=== PATIENT | female | born 1975 | race Caucasian/White ===

== ENCOUNTER 2017-08-25 12:34 | Inpatient (IN) | payer MEDICAID ==
[~2017-08-25] VITALS: Ht 152.4 cm; Wt 70.8 kg
[2017-08-25] VITALS (8 sets, daily range): BP systolic 102–121; BP diastolic 55–74
--- NOTE | 2017-08-25 12:43 | NUR ---
PT AMBULATED TO BED 2.
--- NOTE | 2017-08-25 12:48 | NUR ---
42F BIB FAMILY C/O RLQ ABDOMINAL PAIN, THROBBING, RADIATES TO LLQ, 8/10 X 3 DAYS WITH NAUSEA; PT STATES NO VOMITING OR DIARRHEA AT THIS TIME; ABDOMEN SOFT, NON-TENDER, ACTIVE BOWEL SOUNDS X 4 QUADRANTS; PT AA&OX4, BL LUNG SOUNDS CLEAR, RR EVEN/UNLABORED, SKIN IS WARM/DRY/INTACT WITH EVEN AND STEADY GAIT; PT RESTING IN BED WITH HOB ELEVATED AND IN LOWEST POSITION; POSITIONED FOR COMFORT; ER MD MADE AWARE OF STATUS. WILL CONTINUE TO MONITOR.
--- NOTE | 2017-08-25 12:54 | NUR ---
ER MD DR. LUBIN EVALUATING PT AT BEDSIDE.
[2017-08-25] MEDS ORDERED: NACL 0.9% 1,000 ML IV ONE (12:57)
[2017-08-25] MEDS ORDERED: MORPHINE SULFATE 4 MG/ML SYR IVP ONE (13:00)
[2017-08-25] MEDS ORDERED: ONDANSETRON 4 MG/2 ML VIAL IVP ONE (13:00)
--- NOTE | 2017-08-25 13:12 | NUR ---
patient transported to ultrasound in a gurney at this time.
--- NOTE | 2017-08-25 13:18 | NUR ---
patient returned from ultrasound via [facility].
[2017-08-25 13:27] LABS: BASOPHILS # (AUTO) 0.2 K/uL (0.00-0.22); BASOPHILS % (AUTO) 1.8 % (0.0-2.0); EOSINOPHILS # (AUTO) 0.1 K/uL (0-0.4); EOSINOPHILS % (AUTO) 1.1 % (0.0-4.0); HEMATOCRIT 41.5 % (36-48); LYMPHOCYTES # (AUTO) 2.7 K/uL (2.5-16.5); LYMPHOCYTES % (AUTO) 23.8 % (20.5-51.1); MEAN CORPUSCULAR HEMOGLOBIN 30 pg (27-31); MEAN CORPUSCULAR HGB CONC 34 g/dL (33-37); MEAN CORPUSCULAR VOLUME 89 fL (80-94); MONOCYTES # (AUTO) 0.9 K/uL (0.8-1.0); NEUTROPHILS # (AUTO) 7.5 K/uL (1.8-7.7); NEUTROPHILS % (AUTO) 65.3 % (42.2-75.2); PLATELET COUNT (AUTO) 384 K/uL (140-450); RED BLOOD CELL COUNT(AUTO) 4.69 MIL/uL (4.20-5.40); RED CELL DISTRIBUTION WIDTH 12.4 % (11.6-13.7); WHITE BLOOD COUNT (AUTO) 11.4 K/uL (4.8-10.8)
[2017-08-25 13:39] LABS: CARBON DIOXIDE 26.6 mmol/L (21-32); CREATININE 0.7 mg/dL (0.6-1.3); POTASSIUM 3.6 mmol/L (3.5-5.1)
[2017-08-25 13:45] LABS: ALBUMIN 3.8 g/dL (3.4-5.0); TOTAL BILIRUBIN 0.3 mg/dL (0.0-1.0)
[2017-08-25 13:47] LABS: BILIRUBIN,URINE NEGATIVE (NEGATIVE); BLOOD, URINE NEGATIVE (NEGATIVE); COLOR,URINE YELLOW (YELLOW); LEUKOCYTE ESTERASE ,URINE NEGATIVE (NEGATIVE); NITRITE, URINE NEGATIVE (NEGATIVE); PH,URINE 6.5 (5.0-9.0); UGLUCOSE NEGATIVE (NEGATIVE)
[2017-08-25 13:48] LABS: APPEARANCE,URINE CLEAR (CLEAR)
[2017-08-25] MEDS: PIPERACILLIN/TAZOBACTAM 3.375 GM in DEXTROSE 5% 50 ML IV ONE ×2 (13:55→14:20)
[2017-08-25] MEDS ORDERED: metroNIDAZOLE 500 MG/NS PREMIX 100 ML IV ONE (13:55)
[2017-08-25] MEDS ORDERED: NACL 0.9% 1,000 ML IV SCH (14:06)
[2017-08-25] MEDS ORDERED: PIPERACILLIN/TAZOBACTAM 3.375 GM VIAL IV ONE (14:07)
[2017-08-25] MEDS ORDERED: ACETAMINOPHEN 325 MG TAB PO PRN (14:10)
[2017-08-25] MEDS ORDERED: DOCUSATE SODIUM 100 MG GELCAP PO PRN (14:10)
[2017-08-25] MEDS ORDERED: HYDROcodone/APAP 7.5/325 MG 1 TAB PO PRN (14:10)
--- NOTE | 2017-08-25 14:10 | NUR ---
PT APPEARS TO BE RESTING COMFORTABLY IN BED; RR EVEN/UNLABORED; POSITIONED FOR COMFORT; WILL CONTINUE TO MONITOR.
--- NOTE | 2017-08-25 14:36 | NUR ---
Patient will be admitted to care of DR. JASSO. Admited to MED-SURG. Will go to room 106B. Belongings list completed. Report to NORI CARRILLO; GERARDO NOTIFIED FLAGYL NOT GIVEN ZOSYN INFUSING EN ROUTE TO MED-SURG.
[2017-08-25 14:42] LABS: BARBITURATE, URINE NEG. ng/ml (NEG <=200); BENZODIAZEPINE, URINE NEG. ng/mL (NEG <=200); CANNABINOID, URINE NEG. ng/mL (NEG <=50); COCAINE, URINE NEG. ng/mL (NEG <=300); OPIATE, URINE NEG. ng/mL (NEG <=2000); PHENCYCLIDINE SCREEN,URINE NEG. ng/mL (NEG <=25)
--- NOTE | 2017-08-25 14:45 | NUR ---
PT ADMITTED TO [facility]. ARRIVED VIA GURNEY ACCOMPANIED BY FAMILY MEMBERS AND RN. PT AMBULATED TO BED WITH STEADY GAIT. BEDSIDE REPORT GIVEN BY ER NURSE DARSHANA. PT IS AAOX4. VS: TEMP 98.3 F, O2 SAT 100% ON RA, HR 90, BP 130/72, RR 20. PT NPO STATUS. APPLIED BROWN SOCKS ON. MRSA SWAB DONE. IV TO L AC 20G INFUSING REMAINDER OF ZOSYN IVPB. ORIENTED PT TO ROOM AND CALL LIGHT. BED IN LOW POSITION, WHEELS LOCKED, CALL LIGHT WITHIN REACH. WILL CONTINUE TO MONITOR.
[2017-08-25 14:51] LABS: PROTHROMBIN TIME 10.4 secs (10.8-13.4)
[2017-08-25 14:58] LABS: CHOL/HDL RATIO 3.7 (1-4.5); FREE T4 (FREE THYROXINE) 1.13 ng/dL (0.76-1.46); PHOSPHORUS 3.4 mg/dL (2.5-4.9); THYROID STIMULATING HORMONE 1.76 uIU/mL (0.34-3.74)
--- NOTE | 2017-08-25 15:51 | NUR ---
WENT TO ASSESS PT'S PAIN LEVEL. PT STATED HER PAIN IS 6/10 ON ABD BUT DOES NOT WANT ANY PAIN MEDICATION. STATED "IT'S OKAY." PT GOT UP TO USE RESTROOM. WALKED WITH STEADY GAIT. NO SIGNS OF DISTRESS. WILL CONTINUE TO MONITOR.
[2017-08-25] MEDS ORDERED: BUPIVACAINE-MPF 0.25% 30 ML VIAL INJ ONE (17:15)
--- NOTE | 2017-08-25 17:20 | NUR ---
OBTAINED CONSENT FOR LAP APPENDECTOMY. USED CARE AIDE MAGALI ID # [id number] TO INTERPRET IN [place]UVIAN. PT VERBALIZED UNDERSTANDING AND SIGNED CONSENT FORM. OR NURSE CAME TO OUTBOARD TECHNICIAN PT VIA BED. PT WENT OFF UNIT FOR SURGERY.
[2017-08-25] MEDS ORDERED: fentaNYL 0.05 MG/ML VIAL ONE (17:41)
[2017-08-25] MEDS ORDERED: MORPHINE SULFATE 4 MG/ML SYR ONE ×3 (17:42→19:18)
[2017-08-25] MEDS ORDERED: MIDAZOLAM 2 MG/2 ML VIAL ONE (17:42)
[2017-08-25] MEDS ORDERED: MIDAZOLAM 2 MG/2 ML VIAL IV SCH (18:25)
[2017-08-25] MEDS ORDERED: MORPHINE SULFATE 4 MG/ML SYR IVP PRN (18:25)
[2017-08-25] MEDS ORDERED: MORPHINE SULFATE 2 MG/ML SYR IVP PRN (18:25)
[2017-08-25] MEDS ORDERED: ROCURONIUM 50 MG/5 ML VIAL IV ONE (19:00)
[2017-08-25] MEDS ORDERED: KETOROLAC 60 MG/2 ML VIAL IM ONE (19:00)
[2017-08-25] MEDS ORDERED: GLYCOPYRROLATE 0.2 MG/ML VIAL ONE (19:00)
[2017-08-25] MEDS ORDERED: ONDANSETRON 4 MG/2 ML VIAL ONE (19:00)
[2017-08-25] MEDS ORDERED: NEOSTIGMINE 1:1000 10 MG/10 ML VIAL ONE (19:00)
[2017-08-25] MEDS ORDERED: DESFLURANE 240 ML BTL INH ONE (19:00)
[2017-08-25] MEDS ORDERED: PROPOFOL 200 MG/20 ML VIAL IV ONE (19:00)
[2017-08-25] MEDS ORDERED: SUCCINYLCHOLINE CHLORIDE 200 MG/10 ML VIAL IVP ONE (19:00)
[2017-08-25] MEDS ORDERED: DEXAMETHASONE 10 MG/ML VIAL ONE (19:00)
--- NOTE | 2017-08-25 19:05 | NUR ---
GAVE REPORT TO LIFE SCIENCE RESEARCH ASSISTANT NURSE CHRISSY FOR CONTINUITY OF CARE. PT STILL OFF UNIT FOR PROCEDURE.
--- NOTE | 2017-08-25 19:06 | NUR ---
RECEIVED REPORT FROM DAY SHIFT NURSE GERARDO RN, PT CURRENTLY AT PACU.
[2017-08-25] MEDS: MORPHINE SULFATE 4 MG/ML SYR IVP PRN ×2 (19:24→19:25)
--- NOTE | 2017-08-25 19:50 | NUR ---
PT ARRIVED FROM OR VIA BED, PT STABLE, NO DISTRESS NOTED, REPORT RECEIVED FROM OR NURSE FLOR JULIO, IV TO L AC 20G SL, PATENT, PT ON ROOM AIR O2 SAT AT 90%, NO SOB, WILL PUT PT ON NC, INITIAL ASSESSMENT DONE, ALL SAFETY PRECAUTION MET, WILL CONTINUE TO MONITOR. Addendum: 08/25/17 at 2244 by Louisa Jaquez RN INCISION SITE INTACT WITH DERMABOND, OPEN TO AIR.
[2017-08-25] MEDS: ONDANSETRON 4 MG/2 ML VIAL IM/IVP PRN (20:26)
[2017-08-25] MEDS: metroNIDAZOLE 500 MG/NS PREMIX 100 ML IV SCH (20:27)
[2017-08-25] MEDS: DEXT 5% / NACL 0.45% 1,000 ML IV SCH (20:30)
--- NOTE | 2017-08-25 20:30 | NUR ---
DUE MEDICATION GIVEN, PT TOLERATED WELL, PT C/O OF NAUSEA, ZOFRAN GIVEN, PT TOLERATED WELL, NO DISTRESS NOTED, CALL LIGHT WITHIN REACH, WILL CONTINUE TO MONITOR.
--- NOTE | 2017-08-25 22:50 | NUR ---
CHECKED ON PT, PT SLEEPING, NO DISTRESS NOTED, PT STATED WANTED TO URINATE, AND STATED THAT SHE IS NOT ABLE TO AMBULATE BECAUSE SHE IS FEELING VERY DIZZY, PT USES THE BEDPAN TO URINATE, URINATED WELL, CALL LIGHT WITHIN REACH, WILL CONTINUE TO MONITOR.
[2017-08-25] MEDS: MORPHINE SULFATE 2 MG/ML SYR IVP PRN (23:52)
--- NOTE | 2017-08-25 23:52 | NUR ---
PT C/O OF PAIN 04/06, PAIN MEDICATION GIVEN, PT TOLERATED WELL, NO DISTRESS NOTED, CALL LIGHT WITHIN REACH, WILL CONTINUE TO MONITOR.
[2017-08-26] VITALS: BP 119/60
--- NOTE | 2017-08-26 01:30 | NUR ---
PT SLEEPING, NO DISTRESS NOTED, CALL LIGHT WITHIN REACH, WILL CONTINUE TO MONITOR.
--- NOTE | 2017-08-26 02:30 | NUR ---
PT AMBULATED TO RESTROOM AND BACK TO BED ACCOMPANIED BY CEMENTER HAND, PT STABLE, NO DISTRESS NOTED, CALL LIGHT WITHIN REACH, WILL CONTINUE TO MONITOR.
--- NOTE | 2017-08-26 04:21 | NUR ---
PT SLEEPING, NO DISTRESS NOTED, NO SOB, CALL LIGHT WITHIN REACH, WILL CONTINUE TO MONITOR.
[2017-08-26] MEDS: DEXT 5% / NACL 0.45% 1,000 ML IV SCH ×2 (04:50→09:40)
[2017-08-26] MEDS: metroNIDAZOLE 500 MG/NS PREMIX 100 ML IV SCH ×3 (04:54→21:23)
--- NOTE | 2017-08-26 04:54 | NUR ---
DUE MEDICATION GIVEN, PT TOLERATED WELL, NO DISTRESS NOTED, CALL LIGHT WITHIN REACH, WILL CONTINUE TO MONITOR.
[2017-08-26] MEDS: MORPHINE SULFATE 2 MG/ML SYR IVP PRN (05:26)
[2017-08-26] MEDS: ONDANSETRON 4 MG/2 ML VIAL IM/IVP PRN (05:27)
[2017-08-26 06:33] LABS: BASOPHILS # (AUTO) 0.1 K/uL (0.00-0.22); BASOPHILS % (AUTO) 0.6 % (0.0-2.0); EOSINOPHILS # (AUTO) 0.1 K/uL (0-0.4); EOSINOPHILS % (AUTO) 0.7 % (0.0-4.0); HEMATOCRIT 37.2 % (36-48); HEMOGLOBIN 12.6 g/dL (12.0-16.0); LYMPHOCYTES # (AUTO) 0.6 K/uL (2.5-16.5); LYMPHOCYTES % (AUTO) 4.4 % (20.5-51.1); MEAN CORPUSCULAR HEMOGLOBIN 30 pg (27-31); MEAN CORPUSCULAR HGB CONC 34 g/dL (33-37); MEAN CORPUSCULAR VOLUME 89 fL (80-94); MONOCYTES # (AUTO) 0.5 K/uL (0.8-1.0); MONOCYTES % (AUTO) 3.9 % (1.7-9.3); NEUTROPHILS # (AUTO) 12.7 K/uL (1.8-7.7); NEUTROPHILS % (AUTO) 90.4 % (42.2-75.2); PLATELET COUNT (AUTO) 347 K/uL (140-450); RED BLOOD CELL COUNT(AUTO) 4.18 MIL/uL (4.20-5.40); RED CELL DISTRIBUTION WIDTH 12.5 % (11.6-13.7)
[2017-08-26 06:46] LABS: ANION GAP 13.7 (8-16); CARBON DIOXIDE 22.4 mmol/L (21-32); CREATININE 0.6 mg/dL (0.6-1.3); POTASSIUM 4.1 mmol/L (3.5-5.1)
--- NOTE | 2017-08-26 07:15 | NUR ---
ENDORSED PLAN OF CARE TO DAY SHIFT NURSE RUCHI HAIDER, PT STABLE, NO DISTRESS NOTED, CALL LIGHT WITHIN REACH
--- NOTE | 2017-08-26 07:15 | NUR ---
ASSUMED CONTINUITY OF CARE. NO SIGNS AND SYMPTOMS OF ACUTE DISTRESS NOTED. INITIAL ASSESSMENT DONE. KEEP COMFORTABLE ON BED. EXPLAINED DIAGNOSIS, PLAN OF CARE, PAIN MANAGEMENT TEACHING, USE OF CALL LIGHT/BED/TV/BATHROOM. VERBALIZED UNDERSTANDING. FALL PRECAUTION APPLIED. CALL LIGHT WITHIN REACH.
[2017-08-26 07:42] LABS: T4 (THYROXINE) 9.9 ug/dL (4.5-12.0)
[2017-08-26 08:00] VITALS: BP 115/61
--- NOTE | 2017-08-26 08:39 | NUR ---
PATIENT HAS BEEN SCREENED AND CATEGORIZED LOW NUTRITION RISK. PATIENT WILL BE SEEN WITHIN 7 DAYS OF ADMISSION. 08/31/[address]
--- NOTE | 2017-08-26 08:45 | NUR ---
DR. VILLAREAL SPOKE TO PT. AT BEDSIDE.
[2017-08-26] MEDS ORDERED: KETOROLAC 15 MG/ML VIAL IVP PRN (09:05)
[2017-08-26] MEDS ORDERED: PROMETHAZINE 25 MG/ML VIAL IVP SCH (09:10)
[2017-08-26] MEDS: LACTOBACILLUS RHAMNOSUS GG 1 EACH CAP PO SCH (09:39)
--- NOTE | 2017-08-26 11:40 | NUR ---
PRECISION JIG GRINDER JERMAN SPOKE TO PT. AT BEDSIDE.
[2017-08-26] MEDS ORDERED: KETOROLAC 30 MG/ML VIAL IVP PRN (11:45)
[2017-08-26 12:00] VITALS: BP 96/55
--- NOTE | 2017-08-26 13:48 | NUR ---
WENT TO BATHROOM WITH ASSISTANCE FROM RADHA DUDLEY. TOLERATED WELL. NO C/O PAIN. WILL MONITOR.
[2017-08-26] MEDS ORDERED: NACL 0.45% 1,000 ML IV SCH (14:20)
--- NOTE | 2017-08-26 16:10 | NUR ---
WENT TO BATHROOM WITH ASSISTANCE FROM RADHA DUDLEY. TOLERATED WELL. NO C/O PAIN. NO C/O NAUSEA.
--- NOTE | 2017-08-26 19:10 | NUR ---
BEDSIDE REPORT GIVEN TO CHRISSY RENNER. IVF INFUSING WELL. IN STABLE CONDITION.
--- NOTE | 2017-08-26 19:11 | NUR ---
RECEIVED BEDSIDE REPORT FROM DAY SHIFT NURSE RUCHI HAIDER, PT STABLE, NO DISTRESS NOTED IV TO L AC 20G RUNNING 1/2 NS @ 50ML/HR INFUSING WELL, PT ON ROOM AIR NO SOB, INCISION SITE INTACT, OPEN TO AIR, INITIAL ASSESSMENT DONE, ALL SAFETY PRECAUTION MET, WILL CONTINUE TO MONITOR.
--- NOTE | 2017-08-26 20:00 | NUR ---
DR. CAMERON AT PT BEDSIDE, STATED THAT PT CAN GO HOME TOMORROW (08/27/17) AND TO FOLLOW UP WITH IN 2 WEEKS. Addendum: 08/26/17 at 2020 by Louisa Jaquez RN PT DAUGHTER TRANSLATED TO PT, PT STATED UNDERSTANDING.
--- NOTE | 2017-08-26 21:23 | NUR ---
DUE MEDICATION GIVEN, PT STABLE, NO DISTRESS NOTED, CALL LIGHT WITHIN REACH, WILL CONTINUE TO MONITOR.
--- NOTE | 2017-08-26 22:40 | NUR ---
PT SLEEPING, CALL LIGHT WITHIN REACH, WILL CONTINUE TO MONITOR.
[2017-08-27] VITALS: BP 100/62
--- NOTE | 2017-08-27 00:54 | NUR ---
PT STATED HAVING PAIN 6/10 AFTER AMBULATING TO THE RESTROOM, PT BACK IN BED, NO DISTRESS NOTED, PAIN MEDICATION GIVEN, PT STABLE, NO DISTRESS NOTED, WILL CONTINUE TO MONITOR.
--- NOTE | 2017-08-27 03:10 | NUR ---
PT SLEEPING, NO DISTRESS NOTED, CALL LIGHT WITHIN REACH, WILL CONTINUE TO MONITOR.
[2017-08-27] MEDS: metroNIDAZOLE 500 MG/NS PREMIX 100 ML IV SCH (05:23)
--- NOTE | 2017-08-27 05:23 | NUR ---
DUE MEDICATION GIVEN, PT TOLERATED WELL, NO DISTRESS NOTED, CALL LIGHT WITHIN REACH, WILL CONTINUE TO MONITOR.
--- NOTE | 2017-08-27 06:30 | NUR ---
PT AMBULATED TO BATHROOM THEN AMBULATED OUTSIDE THE ROOM ABOUT 3METERS, THEN WHEN BACK TO ROOM AND SAT ON THE CHAIR BY THE BED, TOLERATED WELL, PT STATED DOES NOT WANT PAIN MEDICATION, NO DISTRESS NOTED, CALL LIGHT WITHIN REACH, WILL CONTINUE TO MONITOR.
--- NOTE | 2017-08-27 07:29 | NUR ---
ENDORSED PT TO DAY SHIFT NURSE MARBELLA RN, PT STABLE, NO DISTRESS NOTED, CALL LIGHT WITHIN REACH.
--- NOTE | 2017-08-27 07:30 | NUR ---
RECEIVED PT ON BED AAOX4. NO SOB NOTED. NO C/O PAIN AT THIS TIME. IV TO LEFT AC PATENT AND INTACT. CHEST CLEAR. ABDOMEN SOFT, BOWEL SOUNDS PRESENT. NOTED 3 SMALL ABDOMINAL INCISIONS S/P LAP APPY , SITE CLEAN, DRY NOT S&S OF INFECTION, DERMABOND INTACT, WOUNDS OPEN TO AIR . INSTRUCTED PT TO CALL FOR ASSISTANCE, CALL LIGHT WITHIN, PT VERBALIZED UNDERSTANDING.
[2017-08-27 07:44] LABS: BASOPHILS # (AUTO) 0.4 K/uL (0.00-0.22); EOSINOPHILS # (AUTO) 0.1 K/uL (0-0.4); EOSINOPHILS % (AUTO) 0.6 % (0.0-4.0); HEMOGLOBIN 11.9 g/dL (12.0-16.0); LYMPHOCYTES # (AUTO) 2.8 K/uL (2.5-16.5); LYMPHOCYTES % (AUTO) 19.4 % (20.5-51.1); MEAN CORPUSCULAR HEMOGLOBIN 30 pg (27-31); MEAN CORPUSCULAR HGB CONC 33 g/dL (33-37); MEAN CORPUSCULAR VOLUME 90 fL (80-94); MONOCYTES % (AUTO) 6.6 % (1.7-9.3); NEUTROPHILS # (AUTO) 10.4 K/uL (1.8-7.7); NEUTROPHILS % (AUTO) 70.4 % (42.2-75.2); PLATELET COUNT (AUTO) 321 K/uL (140-450); RED BLOOD CELL COUNT(AUTO) 4.01 MIL/uL (4.20-5.40); RED CELL DISTRIBUTION WIDTH 12.7 % (11.6-13.7); WHITE BLOOD COUNT (AUTO) 14.7 K/uL (4.8-10.8)
[2017-08-27 08:00] VITALS: BP 114/74
[2017-08-27 08:19] LABS: ANION GAP 10.2 (8-16); CARBON DIOXIDE 26.6 mmol/L (21-32); CREATININE 0.7 mg/dL (0.6-1.3); POTASSIUM 3.8 mmol/L (3.5-5.1)
[2017-08-27 08:21] LABS: MAGNESIUM 2.1 mg/dL (1.8-2.4)
[2017-08-27] MEDS: LACTOBACILLUS RHAMNOSUS GG 1 EACH CAP PO SCH (09:53)
--- NOTE | 2017-08-27 10:00 | NUR ---
DISCHARGE PHOTO TAKEN AND DOCUMENTED.
[2017-08-27 11:56] VITALS: BP 103/69
--- NOTE | 2017-08-27 12:42 | NUR ---
LATE ENTRY FOR 08/26/17 CM NOTE CHART REVIEWED FOR ADMISSION CRITERIA
--- NOTE | 2017-08-27 14:00 | NUR ---
PT STATED SHE HAD BM X2. NO COMPLAINTS MADE.
[2017-08-27 16:09] VITALS: BP 127/82
--- NOTE | 2017-08-27 18:00 | NUR ---
ARM BANDS AND IV REMOVED, CANNULA TIP INTACT.
--- NOTE | 2017-08-27 18:20 | NUR ---
PT HAD DINNER CONSUMED 100%. NO COMPLAINTS MADE.
--- NOTE | 2017-08-27 18:35 | NUR ---
DISCHARGE INSTRUCTIONS GIVE TO PT WHICH VERBALIZED FULL UNDERSTANDING OF THE INSTRUCTIONS GIVEN AND THE NEED TO FOLLOW WITH DR. PADILLA AND PCP ON THE GIVEN SCHEDULE. PT MADE AWARE THAT DR. RICARDO SPOKE WITH HER EARLIER REGARDING NO PRESCRIPTIONS ON DISCHARGE, PT DOES NOT NEED IT PER RESIDENT.
--- NOTE | 2017-08-27 18:35 | NUR ---
PT ESCORTED OUT TO THE FRONT LOBBY, AMBULATORY. NO SOB NOTED. NO COMPLAINTS AT THIS TIME. PT IS D/C HOME WITH .
== END 2017-08-27 18:35 | disposition home or self-care (01) | DRG 225 ==
LOC: MED 12:34 → MTU 14:13
PROVIDERS: ADMIT Family Medicine Sports Medicine; ATTEND Family Medicine Sports Medicine
PROC: 0DTJ4ZZ Resection of Appendix, Percutaneous Endoscopic Approach (ICD-10-PCS; principal; 2017-08-25 17:30)
DX: K35.80 Unspecified acute appendicitis (principal); E87.1 Hypo-osmolality and hyponatremia; E78.5 Hyperlipidemia, unspecified; E66.9 Obesity, unspecified; K21.9 Gastro-esophageal reflux disease without esophagitis; E11.9 Type 2 diabetes mellitus without complications; Z68.30 Body mass index [BMI] 30.0-30.9, adult
CPT/HCPCS: 36415; 71045; 80048; 80053; 80305; 81003; 82150; 82374; 83036; 83690; 83735; 83880; 84100; 84436; 84439; 84443; 84479; 85025; 85610; 85730; 86886; 86900; 86901; 87081; 93005; 96361; 96365; 96375; 99285; J0330; J1100; J1885; J2250; J2270; J2405; J2543; J2550; J2704; J2710; J3010; J3490; J7030; Q0092

== ENCOUNTER 2022-04-06 17:32 | Emergency (ER) | payer MEDICAID ==
[~2022-04-06] VITALS: Ht 142.2 cm; Wt 76.9 kg
[2022-04-06 18:10] VITALS: BP 153/83
[2022-04-06] MEDS ORDERED: PROM118S5 PO (19:25)
[2022-04-06] MEDS ORDERED: BENZ-300 MM (19:25)
[2022-04-06] MEDS ORDERED: IBUP-2213 PO (19:25)
[2022-04-06] MEDS ORDERED: PRON INH (19:25)
[2022-04-06 19:45] VITALS: BP 145/80
== END 2022-04-06 19:45 | disposition home or self-care (01) ==
LOC: MED 17:32
DX: B34.9 Viral infection, unspecified (principal); Z20.822 Contact with and (suspected) exposure to COVID-19; J45.909 Unspecified asthma, uncomplicated; K21.9 Gastro-esophageal reflux disease without esophagitis; Z90.49 Acquired absence of other specified parts of digestive tract; Z79.899 Other long term (current) drug therapy
CPT/HCPCS: 87635; 99283; C9803

== ENCOUNTER 2022-06-05 14:02 | Emergency (ER) | payer MEDICAID ==
[~2022-06-05] VITALS: Ht 139.7 cm; Wt 81.2 kg
[~2022-06-05 14:02] MED LIST: BENZ-300 MM; IBUP-2213 PO; PROM118S5 PO; PRON INH
[2022-06-05 14:22] VITALS: BP 139/64
--- NOTE | 2022-06-05 14:25 | NUR ---
Patient ambulated to bed 4.
--- NOTE | 2022-06-05 14:50 | NUR ---
Dr. Le evaluating patient at bedside.
[2022-06-05] MEDS ORDERED: IBUPROFEN 600 MG TAB PO ONE (14:55)
[2022-06-05] MEDS ORDERED: IBUP-2213 PO (14:56)
--- NOTE | 2022-06-05 15:25 | NUR ---
Report given to NORI Cabral for transfer of care.
--- NOTE | 2022-06-05 15:55 | NUR ---
Patient discharged with v/s stable. Written and verbal after care instructions given and explained. Patient alert, oriented and verbalized understanding of instructions. Ambulatory with steady gait. All questions addressed prior to discharge. ID band removed. Patient advised to follow up with PMD. Rx of ibu given. Patient educated on indication of medication including possible reaction and side effects. Opportunity to ask questions provided and answered.
== END 2022-06-05 15:55 | disposition home or self-care (01) ==
LOC: MED 14:02
DX: S01.01XA Laceration without foreign body of scalp, initial encounter (principal); J45.909 Unspecified asthma, uncomplicated; K21.9 Gastro-esophageal reflux disease without esophagitis; W18.30XA Fall on same level, unspecified, initial encounter; Y93.89 Activity, other specified; Y92.89 Other specified places as the place of occurrence of the external cause; Y99.8 Other external cause status
CPT/HCPCS: 90471; 90715; 99283

== ENCOUNTER 2023-04-27 12:48 | Emergency (ER) | payer MEDICAID ==
[~2023-04-27] VITALS: Ht 137.2 cm; Wt 73.5 kg
[2023-04-27 12:52] VITALS: BP 134/87; PULSE 83; RESP 18; TEMP 97.2; O2SAT 98
[2023-04-27] MEDS ORDERED: PANTOPRAZOLE 40 MG INJ VIAL IVP ONE (13:10)
[2023-04-27] MEDS ORDERED: MORPHINE SULFATE 4 MG/ML SYR IVP ONE (13:10)
[2023-04-27] MEDS ORDERED: ONDANSETRON 4 MG/2 ML VIAL IVP ONE (13:10)
[2023-04-27 13:31] VITALS: O2SAT 98
[2023-04-27 13:34] LABS: APPEARANCE,URINE CLEAR (CLEAR); BILIRUBIN,URINE NEGATIVE (NEGATIVE); BLOOD, URINE NEGATIVE (NEGATIVE); COLOR,URINE YELLOW (YELLOW); LEUKOCYTE ESTERASE ,URINE NEGATIVE (NEGATIVE); NITRITE, URINE NEGATIVE (NEGATIVE); PROTEIN,URINE NEGATIVE (NEGATIVE); UGLUCOSE NEGATIVE (NEGATIVE); UROBILINOGEN,URINE 0.2 EU/dL (0.2 - 1)
[2023-04-27 13:34] LABS: BASOPHILS % (AUTO) 0.4 % (0.0-2.0); EOSINOPHILS # (AUTO) 0.1 K/uL (0-0.4); EOSINOPHILS % (AUTO) 1.1 % (0.0-4.0); HEMATOCRIT 41.9 % (36-48); HEMOGLOBIN 14.2 g/dL (12.0-16.0); LYMPHOCYTES # (AUTO) 2.8 K/uL (2.5-16.5); LYMPHOCYTES % (AUTO) 28.2 % (20.5-51.1); MEAN CORPUSCULAR HEMOGLOBIN 30 pg (27-31); MEAN CORPUSCULAR HGB CONC 34 g/dL (33-37); MEAN CORPUSCULAR VOLUME 89.2 fL (80-94); MONOCYTES # (AUTO) 0.7 K/uL (0.8-1.0); MONOCYTES % (AUTO) 7.2 % (1.7-9.3); NEUTROPHILS # (AUTO) 6.2 K/uL (1.8-7.7); NEUTROPHILS % (AUTO) 63.1 % (42.2-75.2); PLATELET COUNT (AUTO) 393 K/uL (140-450); RED CELL DISTRIBUTION WIDTH 13.4 % (11.6-13.7); WHITE BLOOD COUNT (AUTO) 9.8 K/uL (4.8-10.8)
[2023-04-27] MEDS ORDERED: NACL 0.9% 1,000 ML IV ONE (13:35)
[2023-04-27 13:57] LABS: ALANINE AMINOTRANSFERASE 31 U/L (12-78); ALBUMIN 3.9 g/dL (3.4-5.0); ALKALINE PHOSPHATASE 149 U/L (50-136); ANION GAP 10.3 (8-16); ASPARTATE AMINOTRANSFERASE 16 U/L (15-37); CARBON DIOXIDE 30.4 mmol/L (21-32); CHLORIDE 101 mmol/L (98-107); CREATININE 1.1 mg/dL (0.6-1.3); GFR ARICAN-AMERICAN 68 mL/min (>90); GFR NON ARICAN-AMERICAN 56 mL/min (>90); GLUCOSE 95 mg/dL (74-106); LIPASE 29 U/L (16-77); POTASSIUM 3.7 mmol/L (3.5-5.1); SODIUM SERUM 138 mmol/L (136-145); TOTAL BILIRUBIN 0.3 mg/dL (0.0-1.0); TOTAL PROTEIN, SERUM 7.9 g/dL (6.4-8.2); UREA NITROGEN, BLOOD 19 mg/dL (7-18)
[2023-04-27] MEDS ORDERED: ONDA-188 PO (14:23)
[2023-04-27] MEDS ORDERED: OMEP20EC11 PO (14:23)
[2023-04-27] MEDS ORDERED: MAG-27 PO (14:25)
[2023-04-27 16:21] VITALS: BP 130/82; PULSE 80; RESP 18; TEMP 98; O2SAT 99
== END 2023-04-27 16:21 | disposition home or self-care (01) ==
LOC: MED 12:48
DX: R10.13 Epigastric pain (principal); R10.30 Lower abdominal pain, unspecified; K21.9 Gastro-esophageal reflux disease without esophagitis; J45.909 Unspecified asthma, uncomplicated; Z79.899 Other long term (current) drug therapy
CPT/HCPCS: 36415; 74176; 80053; 81003; 81025; 83690; 84484; 85025; 93005; 96361; 96374; 96375; 99285; C9113; J2270; J2405; J7030

== ENCOUNTER 2023-09-10 19:29 | Inpatient (IN) | payer MEDICAID ==
[~2023-09-10] VITALS: Ht 139.7 cm; Wt 69.7 kg
[~2023-09-10 19:29] MED LIST changes: +MAG-27 PO; +OMEP20EC11 PO; +ONDA-188 PO
[2023-09-10 19:34] VITALS: BP 137/77; PULSE 80; RESP 18; TEMP 98.6; O2SAT 99
[2023-09-10 20:31] LABS: BASOPHILS % (AUTO) 0.4 % (0.0-2.0); EOSINOPHILS # (AUTO) 0.1 K/uL (0-0.4); HEMATOCRIT 39.6 % (36-48); HEMOGLOBIN 13.6 g/dL (12.0-16.0); MEAN CORPUSCULAR HEMOGLOBIN 31 pg (27-31); MEAN CORPUSCULAR HGB CONC 34 g/dL (33-37); MONOCYTES # (AUTO) 0.7 K/uL (0.8-1.0); MONOCYTES % (AUTO) 6.4 % (1.7-9.3); NEUTROPHILS # (AUTO) 6.9 K/uL (1.8-7.7); NEUTROPHILS % (AUTO) 64.2 % (42.2-75.2); PLATELET COUNT (AUTO) 338 K/uL (140-450); RED CELL DISTRIBUTION WIDTH 13.5 % (11.6-13.7); WHITE BLOOD COUNT (AUTO) 10.8 K/uL (4.8-10.8)
[2023-09-10 20:47] LABS: ANION GAP 12.8 (8-16); CALCIUM 8.9 mg/dL (8.5-10.1); CARBON DIOXIDE 30.4 mmol/L (21-32); CREATININE 0.7 mg/dL (0.6-1.3); POTASSIUM 4.2 mmol/L (3.5-5.1)
[2023-09-10 20:51] LABS: ALBUMIN 3.6 g/dL (3.4-5.0); BILIRUBIN,DIRECT 0.2 mg/dL (0.0-0.3); TOTAL BILIRUBIN 0.4 mg/dL (0.0-1.0); TOTAL PROTEIN, SERUM 8.3 g/dL (6.4-8.2)
[2023-09-10 22:18] LABS: APPEARANCE,URINE CLEAR (CLEAR); BILIRUBIN,URINE NEGATIVE (NEGATIVE); BLOOD, URINE NEGATIVE (NEGATIVE); COLOR,URINE YELLOW (YELLOW); LEUKOCYTE ESTERASE ,URINE NEGATIVE (NEGATIVE); NITRITE, URINE NEGATIVE (NEGATIVE); PH,URINE 7.5 (5.0-9.0); PROTEIN,URINE NEGATIVE (NEGATIVE); UGLUCOSE NEGATIVE (NEGATIVE); UROBILINOGEN,URINE 0.2 EU/dL (0.2 - 1)
[2023-09-10 22:24] VITALS: O2SAT 99
[2023-09-10] MEDS ORDERED: DICYCLOMINE HCL LIQUID 10 MG/5 ML UDC ONE (23:43)
[2023-09-10] MEDS ORDERED: ALUMINUM HYD/MAG/SIMETHICONE 30 ML UDC ONE (23:43)
[2023-09-10] MEDS: KETOROLAC 30 MG/ML VIAL IVP ONE (23:46)
[2023-09-10] MEDS: DICYCLOMINE HCL LIQUID 20 MG, ALUMINUM HYD/MAG/SIMETHICONE 30 ML, LIDOCAINE VISCOUS 2% ... PO ONE (23:47)
[2023-09-11] VITALS (10 sets, daily range): BP systolic 118–130; BP diastolic 61–75; PULSE 57–70; RESP 17–20; TEMP 97.7–98.1; O2SAT 93–100
[2023-09-11] MEDS ORDERED: MORPHINE SULFATE 2 MG/ML SYR IVP PRN ×2 (00:50→10:50)
[2023-09-11] MEDS ORDERED: ACETAMINOPHEN 325 MG TAB PO PRN ×2 (00:50→10:50)
[2023-09-11] MEDS: NACL 0.9% 1,000 ML IV ONE (01:20)
[2023-09-11] MEDS ORDERED: AMPICILLIN/SULBACTAM 1.5 GM in NACL 0.9% 50 ML IV SCH (02:00)
[2023-09-11] MEDS: ONDANSETRON 4 MG/2 ML VIAL IVP ONE (02:53)
[2023-09-11 06:15] LABS: BASOPHILS % (AUTO) 0.5 % (0.0-2.0); EOSINOPHILS # (AUTO) 0.1 K/uL (0-0.4); EOSINOPHILS % (AUTO) 1.2 % (0.0-4.0); HEMATOCRIT 37.7 % (36-48); HEMOGLOBIN 12.9 g/dL (12.0-16.0); LYMPHOCYTES # (AUTO) 2.4 K/uL (2.5-16.5); MEAN CORPUSCULAR HEMOGLOBIN 31 pg (27-31); MEAN CORPUSCULAR HGB CONC 34 g/dL (33-37); MEAN CORPUSCULAR VOLUME 89.8 fL (80-94); MONOCYTES # (AUTO) 0.7 K/uL (0.8-1.0); MONOCYTES % (AUTO) 10.2 % (1.7-9.3); NEUTROPHILS # (AUTO) 3.9 K/uL (1.8-7.7); NEUTROPHILS % (AUTO) 54.1 % (42.2-75.2); PLATELET COUNT (AUTO) 303 K/uL (140-450); RED BLOOD CELL COUNT(AUTO) 4.19 MIL/uL (4.20-5.40); RED CELL DISTRIBUTION WIDTH 13.5 % (11.6-13.7); WHITE BLOOD COUNT (AUTO) 7.2 K/uL (4.8-10.8)
[2023-09-11 06:27] LABS: INR 1.31 (0.8-1.2); PARTIAL THROMBOPLASTIN TIME 27.1 secs (22-35.6); PROTHROMBIN TIME 13.5 secs (10.8-13.4)
[2023-09-11 06:50] LABS: ANION GAP 12.8 (8-16); CALCIUM 7.9 mg/dL (8.5-10.1); CARBON DIOXIDE 26.4 mmol/L (21-32); CREATININE 0.6 mg/dL (0.6-1.3); POTASSIUM 4.2 mmol/L (3.5-5.1); TOTAL BILIRUBIN 0.2 mg/dL (0.0-1.0); TOTAL PROTEIN, SERUM 7.7 g/dL (6.4-8.2)
[2023-09-11 08:11] LABS: ALBUMIN 3.5 g/dL (3.4-5.0)
[2023-09-11] MEDS ORDERED: POLYETHYLENE GLYCOL 17 GM/PKT PO PRN (10:50)
[2023-09-11] MEDS ORDERED: MAG SULF 2000 MG/WATER PREMIX 50 ML IV PRN (10:50)
[2023-09-11] MEDS ORDERED: KCL 20 MEQ IN 100 mL PREMIX 200 ML IV PRN (10:50)
[2023-09-11] MEDS ORDERED: MELATONIN 3 MG TAB PO PRN (10:50)
[2023-09-11] MEDS: AMPICILLIN/SULBACTAM 1.5 GM in NACL 0.9% 50 ML IV SCH (13:23)
[2023-09-11] MEDS: ONDANSETRON 4 MG/2 ML VIAL IVP PRN (13:38)
[2023-09-12] VITALS (10 sets, daily range): BP systolic 107–139; BP diastolic 56–69; PULSE 61–72; RESP 12–18; TEMP 97.8–98.2; O2SAT 93–100
[2023-09-12 06:46] LABS: BASOPHILS % (AUTO) 0.5 % (0.0-2.0); EOSINOPHILS # (AUTO) 0.2 K/uL (0-0.4); EOSINOPHILS % (AUTO) 2.1 % (0.0-4.0); HEMATOCRIT 38.5 % (36-48); HEMOGLOBIN 13.2 g/dL (12.0-16.0); LYMPHOCYTES # (AUTO) 2.4 K/uL (2.5-16.5); LYMPHOCYTES % (AUTO) 30.8 % (20.5-51.1); MEAN CORPUSCULAR HEMOGLOBIN 31 pg (27-31); MEAN CORPUSCULAR HGB CONC 34 g/dL (33-37); MEAN CORPUSCULAR VOLUME 91.2 fL (80-94); MONOCYTES # (AUTO) 0.7 K/uL (0.8-1.0); MONOCYTES % (AUTO) 8.8 % (1.7-9.3); NEUTROPHILS # (AUTO) 4.6 K/uL (1.8-7.7); NEUTROPHILS % (AUTO) 57.8 % (42.2-75.2); PLATELET COUNT (AUTO) 315 K/uL (140-450); RED BLOOD CELL COUNT(AUTO) 4.22 MIL/uL (4.20-5.40); RED CELL DISTRIBUTION WIDTH 13.8 % (11.6-13.7); WHITE BLOOD COUNT (AUTO) 7.9 K/uL (4.8-10.8)
[2023-09-12 06:59] LABS: ALBUMIN 3.4 g/dL (3.4-5.0); ANION GAP 10.3 (8-16); CALCIUM 8.7 mg/dL (8.5-10.1); CARBON DIOXIDE 28.5 mmol/L (21-32); CREATININE 0.7 mg/dL (0.6-1.3); MAGNESIUM 1.9 mg/dL (1.8-2.4); PHOSPHORUS 4.6 mg/dL (2.5-4.9); POTASSIUM 4.8 mmol/L (3.5-5.1); TOTAL BILIRUBIN 0.3 mg/dL (0.0-1.0); TOTAL PROTEIN, SERUM 7.6 g/dL (6.4-8.2)
[2023-09-12] MEDS: PANTOPRAZOLE 40 MG INJ VIAL IVP SCH (08:20)
[2023-09-13] VITALS (10 sets, daily range): BP systolic 96–122; BP diastolic 49–77; PULSE 66–86; RESP 12–18; TEMP 96.8–98.4; O2SAT 92–98
[2023-09-13 06:42] LABS: ALBUMIN 3.2 g/dL (3.4-5.0); ANION GAP 10.6 (8-16); CALCIUM 8.5 mg/dL (8.5-10.1); CARBON DIOXIDE 28.2 mmol/L (21-32); CREATININE 0.8 mg/dL (0.6-1.3); MAGNESIUM 2.1 mg/dL (1.8-2.4); PHOSPHORUS 3.9 mg/dL (2.5-4.9); POTASSIUM 4.8 mmol/L (3.5-5.1); TOTAL BILIRUBIN 0.2 mg/dL (0.0-1.0); TOTAL PROTEIN, SERUM 7.4 g/dL (6.4-8.2)
[2023-09-13 07:06] LABS: BASOPHILS % (AUTO) 0.5 % (0.0-2.0); EOSINOPHILS # (AUTO) 0.2 K/uL (0-0.4); EOSINOPHILS % (AUTO) 2.2 % (0.0-4.0); HEMATOCRIT 37.6 % (36-48); HEMOGLOBIN 12.6 g/dL (12.0-16.0); LYMPHOCYTES # (AUTO) 3.1 K/uL (2.5-16.5); LYMPHOCYTES % (AUTO) 34.3 % (20.5-51.1); MEAN CORPUSCULAR HEMOGLOBIN 31 pg (27-31); MEAN CORPUSCULAR HGB CONC 34 g/dL (33-37); MEAN CORPUSCULAR VOLUME 91.1 fL (80-94); MONOCYTES # (AUTO) 0.7 K/uL (0.8-1.0); MONOCYTES % (AUTO) 7.5 % (1.7-9.3); NEUTROPHILS # (AUTO) 5.1 K/uL (1.8-7.7); NEUTROPHILS % (AUTO) 55.5 % (42.2-75.2); PLATELET COUNT (AUTO) 298 K/uL (140-450); RED BLOOD CELL COUNT(AUTO) 4.13 MIL/uL (4.20-5.40); RED CELL DISTRIBUTION WIDTH 13.5 % (11.6-13.7); WHITE BLOOD COUNT (AUTO) 9.1 K/uL (4.8-10.8)
[2023-09-13] MEDS ORDERED: SEVOFLURANE 250 ML BTL INH ONE (12:00)
[2023-09-13] MEDS ORDERED: SUCCINYLCHOLINE CHLORIDE 200 MG/10 ML VIAL IVP ONE (12:00)
[2023-09-13] MEDS ORDERED: ROCURONIUM 50 MG/5 ML VIAL IV ONE (12:00)
[2023-09-13] MEDS ORDERED: PROPOFOL 200 MG/20 ML VIAL IV ONE (12:00)
[2023-09-13] MEDS: fentaNYL citrate 0.05 MG/ML VIAL ONE (12:46)
[2023-09-13] MEDS: BUPIVACAINE-MPF 0.25% 30 ML VIAL INJ ONE (12:46)
[2023-09-13] MEDS: LIDOCAINE/EPI 1% 1:100000 20 ML VIAL INJ ONE (12:46)
[2023-09-13] MEDS: METOCLOPRAMIDE 10 MG/2 ML INJ VIAL ONE (12:47)
[2023-09-13] MEDS: MIDAZOLAM 2 MG/2 ML VIAL ONE (12:47)
[2023-09-13] MEDS: GLYCOPYRROLATE 0.2 MG/ML VIAL ONE ×3 (12:47→12:48)
[2023-09-13] MEDS: ONDANSETRON 4 MG/2 ML VIAL ONE (12:47)
[2023-09-13] MEDS: SUGAMMADEX SODIUM 200 MG/2 ML VIAL IV ONE (12:48)
[2023-09-13] MEDS: KETOROLAC 30 MG/ML VIAL ONE ×2 (12:48)
[2023-09-13] MEDS ORDERED: MEPERIDINE 25 MG/ML SYR IVP PRN (13:10)
[2023-09-13] MEDS ORDERED: ONDANSETRON 4 MG/2 ML VIAL IVP PRN (13:10)
[2023-09-13] MEDS ORDERED: diphenhydrAMINE 50 MG/ML VIAL IVP PRN (13:10)
[2023-09-13] MEDS: HYDROmorphone 1 MG/ML AMP IVP PRN (13:15)
[2023-09-13] MEDS: HYDROmorphone PFS 2 MG/ML SYR ONE (13:49)
[2023-09-13] MEDS: NACL 0.9% 1,000 ML IV SCH (14:11)
[2023-09-14 00:02] VITALS: PULSE 74
[2023-09-14 04:04] VITALS: PULSE 82
[2023-09-14 04:14] VITALS: PULSE 75
[2023-09-14] MEDS: HYDROcodone/APAP 5/325 MG 1 TAB TAB PO PRN (05:23)
[2023-09-14 06:00] VITALS: BP 97/56; PULSE 80; RESP 15; TEMP 98.3; O2SAT 97
[2023-09-14 06:22] LABS: BASOPHILS % (AUTO) 0.3 % (0.0-2.0); EOSINOPHILS # (AUTO) 0.1 K/uL (0-0.4); EOSINOPHILS % (AUTO) 0.7 % (0.0-4.0); HEMOGLOBIN 11.8 g/dL (12.0-16.0); LYMPHOCYTES # (AUTO) 3.4 K/uL (2.5-16.5); MEAN CORPUSCULAR HEMOGLOBIN 31 pg (27-31); MEAN CORPUSCULAR HGB CONC 34 g/dL (33-37); MEAN CORPUSCULAR VOLUME 90.1 fL (80-94); MONOCYTES % (AUTO) 7.8 % (1.7-9.3); NEUTROPHILS # (AUTO) 8.4 K/uL (1.8-7.7); NEUTROPHILS % (AUTO) 65.2 % (42.2-75.2); PLATELET COUNT (AUTO) 298 K/uL (140-450); RED BLOOD CELL COUNT(AUTO) 3.88 MIL/uL (4.20-5.40); RED CELL DISTRIBUTION WIDTH 13.6 % (11.6-13.7); WHITE BLOOD COUNT (AUTO) 12.9 K/uL (4.8-10.8)
[2023-09-14 06:44] LABS: ALBUMIN 3.1 g/dL (3.4-5.0); ANION GAP 9.7 (8-16); CALCIUM 8.3 mg/dL (8.5-10.1); CARBON DIOXIDE 27.8 mmol/L (21-32); CREATININE 0.6 mg/dL (0.6-1.3); PHOSPHORUS 3.6 mg/dL (2.5-4.9); POTASSIUM 3.5 mmol/L (3.5-5.1); TOTAL BILIRUBIN 0.2 mg/dL (0.0-1.0); TOTAL PROTEIN, SERUM 6.2 g/dL (6.4-8.2)
[2023-09-14 08:00] VITALS: PULSE 68; PULSE 80; RESP 18; O2SAT 100
[2023-09-14] MEDS ORDERED: HYDR-5191 PO (12:32)
[2023-09-14] MEDS ORDERED: CIPR500T4 PO (12:32)
[2023-09-14] MEDS ORDERED: METR-435 PO (12:32)
[2023-09-14 14:43] VITALS: BP 136/80; PULSE 68; RESP 18; TEMP 96.9
[2023-09-14] MEDS ORDERED: ACET-9525 PO (18:45)
== END 2023-09-14 16:00 | disposition home or self-care (01) | DRG 263 ==
LOC: MED 19:29 → MTU 09-11 01:08
PROVIDERS: ADMIT Student in an Organized Health Care Education/Training Program; ATTEND Student in an Organized Health Care Education/Training Program
PROC: 0FT44ZZ Resection of Gallbladder, Percutaneous Endoscopic Approach (ICD-10-PCS; principal; 2023-09-13 11:50)
DX: K80.20 Calculus of gallbladder without cholecystitis without obstruction (principal); E83.51 Hypocalcemia; E66.9 Obesity, unspecified; Z68.35 Body mass index [BMI] 35.0-35.9, adult; Z90.49 Acquired absence of other specified parts of digestive tract; Z79.899 Other long term (current) drug therapy
CPT/HCPCS: 36415; 76705; 80048; 80053; 80076; 81003; 83690; 83735; 84100; 85025; 85610; 85730; 87081; 88304; 96374; 96375; 99285; C9113; J0295; J0330; J1170; J1885; J2001; J2250; J2405; J2704; J2765; J3010; J3490; J7030